=== PATIENT | female | born 1940 | race Two or more races ===

== ENCOUNTER 2024-04-18 15:49 | Emergency (ER) | payer OTHER, SELFPAY ==
[2024-04-18 15:52] VITALS: BMI 28.6
[2024-04-18 15:55] VITALS: BP 188/92
[2024-04-18 16:00] VITALS: BP 186/93
[2024-04-18 16:20] LABS: % Basophils 0.4 % (0-2); % Eosinophils 1.4 % (0-6); % Immature Granulocytes 0.8 % (0-0.5); % Monocytes 15.4 % (1.7-9.3); Absolute Basophils 0.1 10^3/uL (0-0.2); Absolute Eosinophils 0.2 10^3/uL (0-0.7); Absolute Immature Granulocytes 0.1 10^3/uL (0-0.05); Absolute Lymphocytes 1.6 10^3/uL (1.2-3.4); Absolute Monocytes 2.1 10^3/uL (0.1-0.6); Absolute Neutrophils 9.4 10^3/uL (1.4-6.5); Hematocrit 41.5 % (37.0-47.0); Hemoglobin 13.9 g/dL (12.0-16.0); Mean Corp Hgb Conc. 33.5 g/dL (33.0-37.0); Mean Corpuscular Volume 92.4 fL (81.0-99.0); Mean Platelet Volume 11.7 fL (7.4-10.4); Nucleated Red Blood Cells % 0 %; Platelet Count 269 10^3/uL (130-400); Red Blood Cell Count 4.49 10^6/uL (4.20-5.40); Red Cell Dist. Width 12.7 % (11.5-14.5); White Blood Cell Count 13.4 10^3/uL (4.8-10.8)
[2024-04-18 16:35] LABS: ALT (SGPT) 16 U/L (0-35); AST (SGOT) 31 U/L (14-36); Alkaline Phosphatase 77 U/L (38-126); Blood Urea Nitrogen 12 mg/dl (7-17); Calcium 9.8 mg/dl (8.4-10.2); Carbon Dioxide 25 mmol/L (22-30); Chloride 101 mmol/L (98-107); Estimated Creatinine Clearance 40 ml/min; Glucose 132 mg/dl (70-99); Potassium 4.1 mmol/L (3.5-5.1); Sodium 140 mmol/L (135-145); Total Bilirubin 0.7 mg/dl (0.2-1.3); Total Protein 7.9 g/dl (6.3-8.2); eGFR > 60.00
--- NOTE | 2024-04-18 17:00 | ED.GENMED ---
History of Present Illness
General
Chief Complaint: Fall
Source: patient and family
Exam Limitations: none
Time Seen by Provider: 04/18/24 16:36
Nursing documentation reviewed up to this point in time: agreed with
History of Present Illness
History of Present Illness:
Patient is a 83-year-old female who presents to the ER for evaluation after fall. Patient was changing her granddaughter when she accidentally fell backward on the carpet. She did hit her lower back and hit her head. She is on Eliquis for A-fib.
She denies loss of consciousness. She was able to get up on her own. She is complaining low back pain.
She denies any neck pain. Denies any headache. Denies any nausea vomiting. Denies any upper/ lower extremity pain.
Review of Systems
Review of Systems
Allergies reviewed?: Yes
Other source history: family
All Other Systems: ROS reviewed and negative except as documented in HPI and ROS
Constitutional: Reports no symptoms; Denies fever, fatigue or chills
Respiratory: Reports no symptoms
Cardiac: Reports no symptoms
ABD/GI: Reports no symptoms; Denies nausea or vomiting
: Reports no symptoms
Musculoskeletal: Reports no symptoms
Skin: Reports no symptoms
Neurological: Reports no symptoms; Denies dizzy or headache
Psychiatric: Reports no symptoms
Phy Exam
General Physical Exam
General Presentation: no apparent distress
General age: appears stated age
General Skin: warm and dry
General Habitus: normal
General Hydration: appears well hydrated
Eye Exam
Eye Exam: PERRL and EOMI
Eye Exam General: PERRL: bilateral and EOM intact: bilateral
Pupil Exam: Bilateral: round and reactive
Neurological Exam
Neurological Exam: alert and oriented x3
Musculoskeletal Exam
Musculoskeletal Exam: full ROM and other (No obvious head injury on exam no bony cervical thoracic/ tenderness no midline lumbar tenderness or tender throughout bilateral paralumbar muscles;no bony tenderness to b/l upper/lower extremties )
Skin Exam
Skin Exam: normal color and warm/dry
Psychiatric Exam
Psychiatric Exam: normal mood/affect
Course
Orders/Labs/Results
Orders:
Orders
04/18/24 16:06
Electrocardiogram (*1) Urgent
Reason for Study: Atrial Fibrillation
CT Head W/o Iv Contrast Urgent
Comment:
Reason For Exam: head strike on eliquis
EKG- Treatment ONCE
04/18/24 16:12
Complete Blood Count/With Diff Urgent
Comprehensive Metabolic Panel Urgent
04/18/24 17:13
Lumbar Spine Complete, 4 View [CR Lumbar Spine Comp Min 4 Vw*] Urgent
Comment:
Reason For Exam: trauma
Abnormal Lab Results
04/18/24
16:12
WBC 13.4 H 10^3/uL
(4.8-10.8)
MPV 11.7 H fL
(7.4-10.4)
Abs Immat Gran (auto) 0.1 H 10^3/uL
(0-0.05)
Absolute Neuts (auto) 9.4 H 10^3/uL
(1.4-6.5)
Absolute Monos (auto) 2.1 H 10^3/uL
(0.1-0.6)
Immature Gran % 0.8 H %
(0-0.5)
Lymphocytes % 12.0 L %
(20.5-51.1)
Monocytes % 15.4 H %
(1.7-9.3)
Glucose 132 H mg/dl
(70-99)
04/18/24 16:12
04/18/24 16:12
Vital Signs
Initial and Last Documented VS:
Initial Vital Signs
Temp
98.3 F
04/18/24 15:52
Last Documented Vital Signs
Temp Pulse Resp BP Pulse Ox
98.3 F 83 17 128/75 94
04/18/24 15:52 04/18/24 19:30 04/18/24 19:30 04/18/24 19:08 04/18/24 19:30
MDM/Problems Addressed
MDM/Problems Addressed:
Patient is document is a 3-year-old female who fell she did hit the back of her head. She fell on a carpeted floor. She is on Eliquis no loss of consciousness she got herself off no headache nausea vomiting. Mild low back pain. No obvious
findings on x-ray. Patient has been ambulatory [id number] to the bathroom well-appearing in no acute distress stable for discharge home will DC with Tylenol ice and heat with close outpatient PCP.
*Radiology
Radiology exam reviewed: radiology read reviewed
*Pulse Oximetry
Patient hypoxic: no
*Critical Care Note
Total Time (30-74mins, 75-104mins- exclusive of procedures): Not Applicable
ED Attending Note
-
Portions of this chart may have been created with voice recognition software.� Occasional wrong word or��sound alike� substitutions may have occurred due to the inherent limitations of voice recognition software.
Discharge Plan
Departure
Patient Disposition: Home (Routine Discharge)
Date of Disposition: 04/18/24
Time of Disposition: 19:46
Patient with high blood pressure during this ER visit?: Yes
Condition: Fair
Covid-19: Not Applicable
Discharge Problem:
Head injury, Contusion
Instructions: Head injury in adults, Contusion
Referrals:
Amrita Varela DO [Family Provider] -
Activity Restrictions/Additional Instructions:
Ice the affected areas for the first 24 hrs 20 minutes at a time several times a day followed by warm moist heat. You May take Tylenol as needed. Follow-up with family doctor in the next several days .
return if any worsening of symptoms.
Interventions
Interventions:
*Risk Screen - Suicide Last Done: 04/18/24 15:52
*General Assessment Last Done: 04/18/24 15:52
*Neglect/Abuse Screening Last Done: 04/18/24 15:52
ED- Fall Risk Assessment Last Done: 04/18/24 16:08
*ED COVID-19 Vaccine History Last Done: 04/18/24 15:52
ED-Musculoskeletal Assessment Last Done: 04/18/24 16:08
ED- Neurological Assessment Last Done: 04/18/24 16:08
ED-Skin Assessment Last Done: 04/18/24 16:08
Discharge Date and Time
Print Language: [place]
[2024-04-18 18:27] VITALS: BP 148/67
[2024-04-18 19:08] VITALS: BP 128/75
== END 2024-04-18 19:57 | disposition home or self-care (01) ==
LOC: EMR 15:49
PROVIDERS: EMERGENCY PHYSICIAN Emergency Medicine; FAMILY PHYSICIAN Family Medicine
DX: S09.90XA Unspecified injury of head, initial encounter (principal); W18.39XA Other fall on same level, initial encounter; I48.91 Unspecified atrial fibrillation; Z79.01 Long term (current) use of anticoagulants
CPT/HCPCS: 99284; 70450; 72110; 80053; 85025; 93005

== ENCOUNTER → 2024-05-15 09:47 | Outpatient (REF) | payer OTHER, SELFPAY | LOC: RAD 09:47 | PROVIDERS: ATTENDING PHYSICIAN Nurse Practitioner Family; FAMILY PHYSICIAN Family Medicine | DX: R06.02 Shortness of breath (principal) | CPT/HCPCS: 71046 ==

== ENCOUNTER → 2024-09-11 16:18 | Outpatient (REF) | payer OTHER, SELFPAY | LOC: DHSLP 16:18 | PROVIDERS: ATTENDING PHYSICIAN Internal Medicine Critical Care Medicine; FAMILY PHYSICIAN Family Medicine | DX: G47.33 Obstructive sleep apnea (adult) (pediatric) (principal) | CPT/HCPCS: 95800 ==

== ENCOUNTER 2025-04-26 06:00 | Day surgery (SDC) | payer OTHER, SELFPAY ==
[2025-04-26] VITALS (10 sets, daily range): BP systolic 105–134; BP diastolic 45–82; BMI 27.5
[2025-04-26] MEDS: NORMOSOL-R/PLASMALYTE-A 1000 IV (07:13)
[2025-04-26 07:19] LABS: Glucose - Point of Care 140 mg/dl (70-99)
[2025-04-26 11:01] LABS: Glucose - Point of Care 130 mg/dl (70-99)
== END 2025-04-26 12:44 | disposition home or self-care (01) ==
LOC: SDS 06:00
PROVIDERS: ATTENDING PHYSICIAN Otolaryngology Facial Plastic Surgery
DX: G47.33 Obstructive sleep apnea (adult) (pediatric) (principal); Z68.28 Body mass index [BMI] 28.0-28.9, adult; I48.91 Unspecified atrial fibrillation; Z79.01 Long term (current) use of anticoagulants; Z95.3 Presence of xenogenic heart valve
CPT/HCPCS: 64582; 71045; 82962; C1767; C1778; C1787

== ENCOUNTER → 2025-07-24 11:22 | Outpatient (REF) | payer OTHER, SELFPAY | LOC: HWRAD 11:22 | PROVIDERS: ATTENDING PHYSICIAN Internal Medicine Critical Care Medicine; FAMILY PHYSICIAN Family Medicine; REFERRING PHYSICIAN Internal Medicine Cardiovascular Disease | DX: R06.02 Shortness of breath (principal); J98.4 Other disorders of lung | CPT/HCPCS: 71250 ==